=== PATIENT | female | born 1930 | race Caucasian/White ===

== ENCOUNTER 2016-12-12 18:29 | Inpatient (IN) | payer MEDICARE, OTHER ==
[~2016-12-12] VITALS: Ht 152.4 cm; Wt 80.7 kg
--- NOTE | ~2016-12-12 | CATH ---
Cardiac Diagnostic + PCI Report Demographics Patient Name STEPHANIE NGUYỄN Gender Female E Date of 1930 Age 86 year(s) Patient Number [id number] Date of Study 12/14/2016 Visit Number [id number] Room Number 414 Corporate ID Ht 152.4 cm Wt 78.93 kg Accession Number [id number] BSA 1.76 m kg/m Referring Dragan Singh Primary Physician Physician Otis Performing Fruehling Ramesh R Secondary Physician Physician Diagnostic Fruehling Ramesh R Assisting Physician Physician Interventional Fruehling Ramesh R Physician Hospital Account Manager Physician MD Findings and Conclusions Diagnostic Findings and Conclusion Two vessel coronary artery disease. Patent stent in the circumflex. 80% distal OM. Small diameter branch. 70% distal LAD. 80% apical-small. Ectatic, dominant RCA, with what appears to be a spontaneous non-flow limiting dissection in the mid portion. Diagnostic Recommendations FFR of the distal LAD lesion. Interventional Findings and Conclusion 70% distal LAD, FFR 0.9. Interventional Recommendations Medical management and low dose ASA. Resume coumadin for a-fib. Add low dose Imdur and continue antiplatelet. Procedure Description The patient was brought to the diagnostic cardiac catheterization laboratory in the fasting, non-sedated state. Informed consent was obtained in the written and verbal form after the risks and benefits were explained. The patient had no further questions and agreed to proceed. The planned puncture-incision site(s) were clipped and prepped with ChloraPrep and draped in the usual sterile manner. Conscious sedation, supplemental oxygen, and pain control medications were delivered by a registered nurse under physician guidance. Surface ECG rhythm, blood pressure measurement, and pulse oximetry were monitored throughout the procedure. Arterial access. The right radial access site was infiltrated with lidocaine. The right radial vessel was entered with the Seldinger technique. A 6F radial sheath was advanced into the vessel and used for catheter placement. Selective right coronary angiography. A 6F FR4 catheter was advanced into the right coronary vessel ostium under fluoroscopic guidance. Contrast was injected by hand. Images were obtained in multiple projections. Selective left coronary angiography. A 6F JL4 catheter was advanced into the left coronary vessel ostium under Fluoroscopic guidance. Contrast was injected by hand. Images were obtained in multiple projections. FFR measurement was performed. The vessel was entered with an EBU 3.5 guiding catheter. The FFR wire was normalized and then advanced across the lesion. Maximum hyperemia was achieved using adenosine. Left heart catheterization. A 6F angled pigtail catheter was advanced across the aortic valve to the left ventricle under fluoroscopic guidance. Resting hemodynamics were obtained. Arterial artery hemostasis was achieved using a TR band. The patient was transferred to a regular nursing floor via cart accompanied by a nurse. The patient left the laboratory in stable condition. Diagnostic Cath Status: Urgent Procedure Procedure Type Diagnostic procedure:Angiography:, Coronary Angios w/[facility] PCI procedure:Additional Imaging:, FFR/iFR:, Initial Vessel Indications: Chest discomfort, Elevated troponin, Prior PCI with stent placement, CAD, Diabetes, Hyperlipidemia and Hypertension. The procedure was explained in detail to the patient. Risks, complications and alternative treatments were reviewed. Written consent was obtained. Medications Reviewed with Patient prior to Procedure. Complications: No Complication. Angiographic Findings Dominance: Right Cardiac Arteries and Lesion Findings LMCA: Normal (0% Stenosis). LAD: Abnormal. Lesion on Dist LAD: Proximal subsection.70% stenosis . Devices used - VERRATA. Number of passes: 1. Lesion on Prox LAD: 40% stenosis . Lesion on Mid LAD: 30% stenosis . Lesion on 1st Diag: Mid subsection.40% stenosis . Lesion on Dist LAD: Distal subsection.80% stenosis . LCx: Abnormal.There is a previous stent on Mid CX showing wide patency. Lesion on Prox CX: Mid subsection.40% stenosis . Lesion on 1st Ob Sue: Distal subsection.80% stenosis . RCA: Abnormal. Lesion on Prox RCA: 30% stenosis . Lesion on Mid RCA: 40% stenosis . Comments:ectatic Lesion on Dist RCA: 30% stenosis . Coronary Tree Procedure Data Procedure Date Date: 12/14/2016Start: 08:05 AMEnd: 08:55 AM Entry Locations - Percutaneous access was performed through the Right Radial artery (Primary location). A 6 Fr sheath was inserted. Procedure Medications Order and Administration + + +---------+-------+ !Time !Medication !Dosage !Route ! + + +---------+-------+ !12/14/2016 !Fentanyl !25 mcg !I.V. ! !08:02 AM ! ! ! ! + + +---------+-------+ !12/14/2016 !Versed !1 mg !I.V. ! !08:02 AM ! ! ! ! + + +---------+-------+ !12/14/2016 !Sodium Chloride !10 ml !I.V. ! !08:02 AM ! ! ! ! + + +---------+-------+ !12/14/2016 !SF Radial Cocktail: 200mcg Nitro, 2.5 mg! !I.A. ! !08:11 AM !Verapamil, 5000u Heparin ! ! ! + + +---------+-------+ !12/14/2016 !Fentanyl !25 mcg !I.V. ! !08:11 AM ! ! ! ! + + +---------+-------+ !12/14/2016 !Versed !1 mg !I.V. ! !08:11 AM ! ! ! ! + + +---------+-------+ !12/14/2016 !Oxygen !2 l/min !NC ! !08:15 AM ! ! ! ! + + +---------+-------+ !12/14/2016 !Oxygen !4 l/min !NC ! !08:16 AM ! ! ! ! + + +---------+-------+ !12/14/2016 !Heparin (ACC_3) !1000 ! ! !08:39 AM ! !units ! ! + + +---------+-------+ !12/14/2016 !Adenosine (IV) !33 mg !I.V. ! !08:32 AM ! ! ! ! + + +---------+-------+ !12/14/2016 !Sodium Chloride !10 ml !I.V. ! !08:39 AM ! ! ! ! + + +---------+-------+ Devices Used - A6 FrCATH 6FR MULTIPACK CATHETERSwas used for:BilateralCoronary Angios. - A6 FrCATH 6FR MULTIPACK CATHETERSwas used for:BilateralCoronary Angios. - A6 FrGUIDE CATHETER 6FR EBU 3.5 100CMwas used for:LeftsideFractional Flow [place] measurments. - A6 FrCATH 6FR MULTIPACK CATHETERSwas used for:LeftsideLV Pressures. Contrast Material - Isovue 63574 ml Fluoroscopy Time: Diagnostic: 5:30 minutes. Total: 5:30 minutes. Fluoroscopy Dose: Diagnostic: 572 mGy. Total: 572 mGy. Estimated Blood Loss: 10 ml. Medical History Allergies - Penicillin. - Sulfa. - Other:(lisinopril, cipro, flagyl, meperidine, fish oil). Risk Factors The patient risk factors include:prior PCI on 11/27/2014;physical activity, treated hypercholesterolemia, treated hypertension, diet-treated diabetes mellitus, chronic lung disease, last creatinine: 1.1 mg/dl, creatinine clearance: 47.43 ml/min, dyslipidemia and prior IN . Admission Data Admission Date: 12/13/2016 Admission Time: 08:50 AM Insurance Payors: Medicare. Clinical Evaluation Leading to Procedure Diagnosed on 12/14/2016 07:50 AM. - The patient's CAD presentation was assessed as: Non-STEMI. Hemodynamics Condition: Rest O2 Consumption: Estimated: 164.26Heart Rate: 81 bpm Pressures (mmHg) +-----+ + !Site !Pressure ! +-----+ + !AO !87/49 (65) ! +-----+ + !LV !103/0 ,13 ! +-----+ + !AO !117/42 (73) ! +-----+ + !LV !102/1 ,14 ! +-----+ + Valve Gradients and Areas + +---------+---------+---------+ +---------+ + !Valve !Peak !Mean !Area !Index !Flow !Source ! + +---------+---------+---------+ +---------+ + !Aortic !0 !0 ! ! ! ! ! + +---------+---------+---------+ +---------+ + !Aortic !0 !0 ! ! ! ! ! + +---------+---------+---------+ +---------+ + Shunts Oxygen Values O2 Capacity 157.76 O2 Consumption 164.26 Discharge Data Discharge Date: 12/16/2016 Hospital Status: Inpatient Signatures
--- NOTE | ~2016-12-12 | ECH ---
Transthoracic Echocardiography Report (TTE) Demographics Patient Name GOPI BROWN Date of Study 12/13/2016 E Patient Number [id number] Visit Number [id number] Date of 1930 Room Number 414 Accession Number [id number] Gender Female Age 86 year(s) Referring Cecilia Mcmahan Processing Technologist Isha Espino [facility] Physician MD Dragan Berg Physician Interpreting Cecilia Mcmahan Chocolate Finisher Physician Supervising Ordering Physician Cecilia Mcmahan MD/MLP Nurse Stress Sports Physician Conclusions Summary Technically adequate exam. The estimated left ventricular ejection fraction is 60%. Mild left ventricular hypertrophy. The left atrium is severely dilated by LA volume index measurement. Moderate mitral annular calcification. Mild mitral regurgitation by color Doppler. There is mild aortic regurgitation by color Doppler. Moderate tricuspid regurgitation by color Doppler. Estimated pulmonary pressures within normal limits. Procedure Type of Study TTE procedure:Echo Complete SF. Procedure Date Date: 12/13/2016 Start: 09:43 AM Technical Quality: Adequate visualization Indications:Chest pain, Abnormal troponin and Coronary artery disease. Additional Indications:pacemaker, history of atrial flutter Appropriate Use Criteria: 9 Height: 60 inches Weight: 174 pounds BSA: 1.76 m Rhythm: Irregular HR: 75 bpm BP: 126/77 mmHg M-Mode/2D Measurements LV Diastolic Dimension: 3.3 cm LV Systolic Dimension: 3.1 cm LV Septum Diastolic: 0.99 cm LV PW Diastolic: 1.21 cm AO Root Dimension: 2.64 cm Cardiac Output: 3.43 l/min LA Dimension: 3.94 cm Cardiac Index: 1.95 l/min*m RV Diastolic Dimension: 3.3 cm LA volume index: 49 ml/m LVOT: 1.66 cm LVOT VTI: 21.13 cm RV Base: 3.1 cm LV Stroke volume: 45.71 ml RV Mid: 1.9 cm LV Stroke volume index: 25.97 ml/m Doppler Measurements AV Peak Velocity: 1.08 m/s MV Peak E-Wave: 1.29 m/s AV Peak Gradient: 4.67 mmHg AV Mean Gradient: 3.12 mmHg MV P1/2t: 47.1 msec LVOT Peak Velocity: 0.96 m/s AV Area (Continuity):2.39 cm AV P1/2t: 438.3 msec MV Area (PHT): 4.67 cm TR Velocity:2.46 m/s PV Peak Velocity: 0.94 m/s TR Gradient:24.21 mmHg PV Peak Gradient: 3.56 mmHg Estimated RAP:5 mmHg Estimated PASP: 29.21 mmHg Estimated RVSP: 29 mmHg RA Area: 13.8 cm Findings Left Ventricle The left ventricle is normal in size . Mild left ventricular hypertrophy. Diastolic function indeterminate due to patient's arrhythmia. Right Ventricle Normal right ventricle structure and function. Left Atrium The left atrium is severely dilated by LA volume index measurement. Right Atrium Normal right atrial size. Mitral Valve Mild to moderate mitral annular calcification. Mild mitral regurgitation by color Doppler. Aortic Valve The aortic valve is mildly sclerotic. There is mild aortic regurgitation by color Doppler. Tricuspid Valve Normal tricuspid valve structure and function. Mild tricuspid regurgitation by color Doppler. Estimated pulmonary pressures within normal limits. Pulmonic Valve The pulmonic valve is not well visualized. Pericardial Effusion No evidence of pericardial effusion. Miscellaneous Visualized portions of the aortic root and ascending aorta appear normal in size. Pleural Effusion No evidence of pleural effusion. Contractility Score LV regional wall motion:(0-Non visualized 1-Normal 2-Hypokinesis 3-Akinesis 4-Dyskinesis 5-Aneurysm) Signature
--- NOTE | ~2016-12-12 | LETTER ---
ADMIT: 12/12/2016 RM/LOC: 414 [facility] MR#: [id number] [address] [address] ITALORUCHI ARTI Payton [address] [facility] [place] [address] Letter SEX: F AGE: 86 : 1930 December 14, 2016 Samantha Archibald MD. [address] [place] [address] Re: ARTI NORRIS Dear Samantha, Your patient, Arti Norris was hospitalized over the weekend. She had chest discomfort. As you recall, she has coronary disease with a previous circumflex stents two years ago and FFR of the LAD at that time, which was 0.84. Her LAD was not treated. On this occasion, her peak troponin was 3.7. I did a heart catheterization this morning. Her circumflex stent is widely patent. The LAD looks stable. The changes that I noticed are that a small obtuse marginal has a high-grade 80% stenosis and the very apical LAD has 80% stenosis. These are very small and distal vessels. I did go ahead and repeat the FFR of the LAD, which was 0.9 indicating it was not hemodynamically significant in the distal lesion, which was my biggest concern. We will treat her medically. We will add aspirin to her long-term Coumadin therapy that she is on for atrial fibrillation. I am going to add low-dose Imdur 30 daily and increase her Lipitor to 20 daily. If you any questions or concerns, please do not hesitate to contact me. Sincerely, MD PADMINI Salazar/guerline /[phone]
[~2016-12-12 18:29] MED LIST: AMBIEN DPS10 MG PO; CARDIZEM90 MG PO; CENTRUM SILVER1 EAC1 PO; COLACE-DPS100 MG PO; COUMADIN DPS3 MG PO; FOLIC ACID1 MG PO; IMDUR DPS30 MG PO; LASIX DPS40 MG PO; MAALOX DPS30 ML PO; OXY IR DPS5 MG PO; PLAVIX75 MG PO; PROTONIX40 MG PO; SENOKOT S1 TAB PO; STOOL SOFTENER100 MG PO; TYLENOL DPS325 MG PO; VITAMIN D-32000 UNI1 PO
--- NOTE | 2016-12-13 13:34 | HP ---
ADMIT: 12/12/2016 RM/LOC: 414 [facility] MR#: [id number] [address] [address] GOPI BROWN [address] [facility] [place] [address] History and Physical SEX: F AGE: 86 : 1930 DATE OF SERVICE: CHIEF COMPLAINT: Chest pain. HISTORY OF PRESENT ILLNESS: This is an 86-year-old female. She has past medical history of coronary artery disease and osteoporosis with compression fractures. She presented with chest pain. It started this afternoon about 4:30, was persistent and fairly severe until she got here well after 6. She was on the phone with her daughter and it got progressively worse, so then she decided to call her daughter back and called her son. They came over. She took 2 different nitroglycerin pills. Pain really did not resolve at all, but then she decided to come to the emergency room. By the time she got here, her pain had resolved. Initial workup was all normal. She has no more pain now. Interestingly enough since last August, she has had decreased exercise tolerance. It started after she had a fall with subsequent compression fractures on August 23. She has had some back pain ever since that time. She noted that she went up some stairs a few weeks ago and she was quite short of breath, and then she had walked out to her mailbox recently and this also made her short of breath which is unusual for her. She did not know if this was related to her just deconditioning from her back injury or that there was a heart problem setting in. She usually sees Dr. Hardin and she has an appointment set up for the of next month. PAST MEDICAL HISTORY: Includes gastritis, chronic back pain, coronary artery disease, status post stent placement. She has had a pelvic fracture, thoracic compression fractures, COPD, diabetes. She had diverticulosis. She has degenerative joint disease of the cervical spine, history of esophageal spasm. She had a hiatal hernia. She has atrial fibrillation/atrial flutter, on chronic anticoagulation. She has hypertension, hyperlipidemia, obstructive sleep apnea. She has pacemaker, arthritis of multiple joints, chronic kidney disease stage III, vitamin D deficiency. PAST SURGICAL HISTORY: Include bilateral cataracts. She has had a lap cholecystectomy. HOME MEDICATIONS: 1. Aldactone 25 mg daily. 2. Coumadin 3 mg five days a week, 1.5 mg two days a week. 3. Folic acid 1 mg b.i.d. 4. Potassium 20 mEq daily. 5. Protonix 40 mg daily. 6. Tylenol 325 mg tablets two tabs four times a day. 7. Vitamin D3 2000 units daily. 8. Centrum Silver daily. 9. Nitroglycerin p.r.n. 10.She has Lipitor 10 mg daily. 11.She has stool softeners. 12.Lasix 20 mg daily. ADMIT: 12/12/2016 RM/LOC: 414 [facility] MR#: [id number] [address] [place] [id number] GOPI BROWN [address] [place] [address] History and Physical SEX: F AGE: 86 : 1930 ALLERGY: To penicillin, sulfa, Zocor, Cipro, Demerol, fish oil, Flagyl, Livalo, Lopressor, and pravastatin. IMMUNIZATIONS: She had a flu shot this last fall. She had a Prevnar in 2014 and Pneumovax in 2006. She had a Zostavax in 2011. FAMILY HISTORY: Diabetes in some aunts, coronary artery disease in an uncle. Grandmother with breast cancer, paternal and maternal, and a paternal aunt with breast cancer. Cousins with breast cancer. Sister with stroke and a sister with abdominal aortic aneurysm. Brother with hypertension. Father with colon cancer. SOCIAL HISTORY: She never has smoked. About one can of beer per week. REVIEW OF SYSTEMS: Other complete review of systems obtained and negative except as above. PHYSICAL EXAMINATION: VITAL SIGNS: Temperature 97.1, pulse 87, respirations 14, blood pressure 140/90. GENERAL: This is a well-appearing, very nice 86-year-old female. She appears her stated age. She is in no apparent distress. She is alert. She is oriented. She is wearing glasses. HEENT: Head is normocephalic, atraumatic. Pupils are equal, round, and reactive to light and accommodation. Extraocular muscles are intact. Her throat is clear. NECK: Supple. Trachea midline. HEART: Irregularly irregular. Pacer in left upper chest. LUNGS: Diminished, but clear to auscultation bilaterally. ABDOMEN: Soft, without any tenderness. EXTREMITIES: Lower extremities have trace edema bilaterally. Some varicosities. She can move all extremities equally bilaterally. Cranial nerves are intact. LABORATORY AND X-RAY DATA: EKG, has ventricular paced rhythm. Cardiac enzymes are negative. ASSESSMENT AND PLAN: 1. Chest pain. 2. Coronary artery disease. 3. Decreased exercise tolerance. 4. Atrial fibrillation. ADMIT: 12/12/2016 RM/LOC: 414 [facility] MR#: [id number] [address] [place] [id number] GOPI BROWN [address] [place] [address] History and Physical SEX: F AGE: 86 : 1930 5. Anticoagulation. Her INR was 1.0. 6. She has osteoporosis. 7. Obstructive sleep apnea. 8. History of pacemaker. 9. Chronic obstructive pulmonary disease. PLAN: We are going to have her admitted to the hospital, rule out for acute ischemia with serial cardiac enzymes. Start her on some aspirin and do a pacer check on her as well. We will have Cardiology see her. I think she needs an echo because of her decreased exercise tolerance and good story from this degree of chest pain, and I will give her a dose of Lovenox because of her low INR. Hernán Henry MD/ guerline JOB #: [id number] CC: Samantha Archibald, Attending Physician Samantha Archibald, Family Physician
[2016-12-17] MEDS ORDERED: ASPIR 8181 MG PO (11:21)
[2016-12-17] MEDS ORDERED: CRANBERRY500 M1 PO (11:22)
[2016-12-17] MEDS ORDERED: TOPROL XL DPS25 MG PO (11:22)
[2016-12-17] MEDS ORDERED: LOVENOX DP30 MG/0.3 SQ (11:23)
--- NOTE | 2016-12-22 13:53 | ER ---
ADMIT: 12/12/2016 RM/LOC: ER [facility] MR#: [id number] [address] [address] GOPI BROWN [facility] [facility] [address] Emergency Room Report SEX: F AGE: 86 : 1930 DATE: 12/12/2016 See T sheet for complete H and P. ADDENDUM: An 86-year-old female comes in complaining of chest pain. It began about 3 hours ago and was spread over to chest with radiation to both arms. She did take some nitroglycerin at home, which did not seem to initially change her pain but did get better by the time she came in here. She had some slight pain when she got here, but by the time I spoke with her, pain had resolved completely. She does have history of coronary artery disease with stents a couple of years ago and she had some other nonocclusive disease at that time. Cardiac enzymes were normal here. Her D-dimer was slightly elevated but her INR was 1.8. She takes Coumadin for her atrial fibrillation. Chest x-ray showed nothing acute and EKG showed nothing acute. I spoke to Dr. Henry, and will be admitting the patient for further chest pain workup. The patient is admitted in improved condition. DIAGNOSES: Chest pain. Richard Waite MD/ guerline JOB #: [id number] CC: Walter Corral MD, Attending Physician
--- NOTE | 2016-12-25 17:29 | CO ---
ADMIT: 12/12/2016 RM/LOC: 414 [facility] MR#: [id number] [id number] [place], [place] [address] ARTI BROWN [facility] [place] [address] Consultation SEX: F AGE: 86 : 1930 DATE OF CONSULTATION: 12/13/2016 ATTENDING PHYSICIAN: Samantha Archibald CONSULTING PHYSICIAN: Ramesh Brooks MD REASON FOR CONSULT: Chest pain with known history of coronary disease and elevated cardiac biomarkers. HISTORY OF PRESENT ILLNESS: Arti is a very nice 86-year-old lady with a significant cardiac history. She actually had a drug-eluting stent to her circumflex about 2 years ago in November of 2014. She had residual LAD disease that was negative by fractional flow reserve and has been treated medically. She also has a history of AFib on sotalol and anticoagulation. She has tachy- ino syndrome, status post previous pacemaker implantation. She said ever since August when she sustained a fall and had a compression fracture followed by influenza and coughing for about 6 weeks, she has continued to have some shortness of breath with exertion. These are somewhat similar, although not as intense as her symptoms she had before her previous stent in 2014. She was just waiting to discuss with Dr. Hardin in the office her ongoing symptoms. She did not think they were that serious. Yesterday, she had come home from the grocery store and was just getting ready for evening when she began having an uncomfortable feeling in her chest. She described it as a tightness, which was rather severe between her breasts. Her arms became very weak, but there was no radiation of the pain. She said she did not have a lot of shortness of breath or nausea or vomiting with it. She was not diaphoretic. She called her children. She said she "hemmed in hard" about coming in. Finally, she threw up her arms and said let us go to the emergency room. Her initial enzymes were negative. Overnight, however, her cardiac enzymes have become positive with a troponin of over 2. Currently, she is pain free. She appears comfortable and she is resting comfortably. Her INR is subtherapeutic. She does have a few paced beats, but I do not see any acute ischemic EKG changes on her EKG. ALLERGIES: OPIOIDS, PENICILLIN, SULFA, LISINOPRIL, METRONIDAZOLE, MEPERIDINE, FISH OIL, AND AN INTOLERANCE TO CIPRO. HOME MEDICATIONS: Include: 1. Aldactone 25 mg daily. 2. Coumadin 3 mg, but not on Wednesday or Wednesday. 3. Betapace 120 b.i.d. 4. Coumadin 1.5 mg on Wednesday, Wednesday. 5. Folic acid 1 mg b.i.d. 6. Potassium 20 mEq daily. 7. Protonix 40 mg daily. 8. Tylenol 325 mg q.i.d. 9. Vitamin D3, Centrum Silver, nitroglycerin as needed. 10.I think she is also on Lipitor, but I do not know the dose. ADMIT: 12/12/2016 RM/LOC: 414 [facility] MR#: [id number] [address] [place] [id number] ARTI BROWN [address] [place] [address] Consultation SEX: F AGE: 86 : 1930 ILLNESSES: Include questionable history of COPD. She has osteoporosis; atrial fibrillation, which I think is persistent, but she has been maintaining sinus rhythm; chronic kidney disease; coronary artery disease with previous stent to the circumflex in 2014; osteoporosis; hypertension; hyperlipidemia; obstructive sleep apnea. PAST SURGICAL HISTORY: Includes knee replacement in 2012. She has had a cholecystectomy and cataract surgery. FAMILY HISTORY: Negative for premature coronary disease. Her father had stomach cancer and also suffered a stroke. She has another younger sister, who is wheelchair bound after a stroke. Her mother at the age 103 of old age. SOCIAL HISTORY: She does not have a significant smoking history. She drinks 2 cups of coffee a day. She tries to follow a low-sodium diet. No alcohol or illicit drug use. She has been for the past 10 years. She has 3 children. 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 REVIEW OF SYSTEMS: GENERAL: She tires easily and that has been going on for 4 months. EYES: Positive for blurry vision and cataracts. ENT: Denies hearing loss or problems with nose, mouth or throat. PULMONARY: She wakes more than once a night. GASTROINTESTINAL: Positive for heartburn, reflux, and history of cholecystectomy. GENITOURINARY: Positive for urinary tract infections. MUSCULOSKELETAL: Positive for muscle pain. ENDOCRINE: Denies history of thyroid dysfunction or diabetes. HEMATOLOGIC: Denies history of anemia, easy bruising, or cancer. NEUROLOGIC: Denies chronic headaches, dizziness, syncope, stroke, seizures or numbness or tingling. PSYCHIATRIC: Denies history of mental illness or feelings of depression. PHYSICAL EXAMINATION: VITAL SIGNS: Her blood pressure is 126/77, her pulse is 79, respirations 14, she is afebrile, O2 sats are 95% on room air. SKIN: Mildly pale. [place], warm and dry. EYES: There was some haziness over her lens. Sclerae clear. No xanthelasmas. ENT: No definitive carotid bruits and no JVD. Oral mucosa is pink and moist. No jugular venous distention or carotid bruits. CHEST: Moderate kyphosis. Respirations are even and unlabored. Lungs are clear to auscultation. HEART: Regular rate and rhythm. Normal S1, S2. No murmurs, rubs or gallops. ABDOMEN: Mildly obese. Soft and nontender. MUSCULOSKELETAL: Positive for kyphosis. Gait is normal. EXTREMITIES: Trivial edema with varicosities. PSYCHIATRIC: Alert and oriented. Mood and affect are appropriate. ADMIT: 12/12/2016 RM/LOC: 414 [facility] MR#: [id number] [address] [facility] [address] [place], [place] [address] ARTI BROWN [address] [place], [place] [id number] Consultation SEX: F AGE: 86 : 1930 LABORATORY AND IMAGING DATA: Sodium 139, potassium 4.0, BUN 18, creatinine is 1.4. Total bilirubin is normal. Her AST is 19, ALT is 18. CK initially was 44, now is 131, with an MB of 16, which gives a ratio of 12 and her troponin is 2.83. Her initial troponin was normal. ProBNP is mildly elevated at 1574. Her INR is 1.06. White count 9.8, hemoglobin 13.7, and platelet count 260,000. Chest x-ray is pending. IMPRESSION: 1. Eqo-ES-nsdfanodu-acute coronary syndrome. 2. Known coronary artery disease. 3. History of atrial fibrillation, on anticoagulation and antiarrhythmic therapy. 4. Prior permanent pacemaker implantation. 5. Chronic kidney disease. 6. Gastroesophageal reflux disease. 7. Osteoporosis. 8. History of sleep apnea. RECOMMENDATIONS: She is stable now without any further chest pain and resting comfortably. Her enzymes have turned positive and there are high risk features. She now has a kwh-TD-ydlesmodu myocardial infarction. I would like to continue to hold her Coumadin. We will do an echo today to evaluate her LV function, and I am planning tentatively on heart catheterization in the morning. Unless there is a significant clinical change, I could take her on a more urgent basis. I would like her echo prior to her heart catheterization. We will continue her heparin. Her INR is subtherapeutic, so we will continue to hold her Coumadin. I did discuss the procedure with her including the potential risk and benefits. Potential risks including, but not limited to, bleeding or vascular trauma, worsening of her myocardial infarction, renal failure, arrhythmia, kidney failure, and even a small possibility of . She states understanding and wishes to proceed. I also would like to continue some hydration over the next day before her heart cath. Ramesh Brooks MD/ guerline JOB #: [id number] CC: Samantha Archibald, Attending Physician Samantha Archibald, Family Physician
--- NOTE | 2016-12-28 01:17 | DS ---
ADMIT: 12/13/2016 RM/LOC: 414 [facility] MR#: [id number] [address] [place], [place] [address] ARTI BROWN [facility] [place] [address] Discharge Summary SEX: F AGE: 86 : 1930 ADMISSION DATE: 12/13/2016 DISCHARGE DATE: 12/16/2016 DIAGNOSES: 1. 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 2. Acute coronary syndrome. 3. Coronary artery disease. 4. Atrial fibrillation-chronic and persistent. 5. Pacemaker. 6. Hypokalemia. 7. Osteoporosis. 8. COPD (chronic obstructive pulmonary disease). 9. Hyperlipidemia. 10.Dysuria. PROCEDURE: 1. Pacemaker check. 2. Echo 12/13/2016. 3. Heart catheterization 12/14/2016. REASON FOR HOSPITALIZATION: Chest pain. See dictated H and P. LABORATORY AND X-RAY DATA: Echocardiogram with an ejection fraction of 60%. Left atrial dilatation, moderate mitral annular calcification, moderate tricuspid regurgitation with normal pulmonary pressures. Sodium 142, potassium 4.3, chloride 111, CO2 25, BUN 12, creatinine 1.4 down to 1, cholesterol 107, triglycerides 61, HDL 40, LDL 55. Calcium 8.5, total bilirubin 0.5, total protein 7.2, albumin 3.4, alkaline phosphatase 101, AST 19, ALT 18, GFR 52, CK 144 on admit up to 166, MB on admit 1.3 (did bump to 20.2), final value of 13.3, relative index final value 9.9, troponin 0.015 on admission, maxed to 3.710, down to 0.767. ProBNP 1574. INR on admission was 1.06, final value 1.21. PTT was variable, see chart. White count 8, hemoglobin 11.1, platelet count 223, lactic acid 1.2 on admission. Urine with some nitrites and culture is pending. Chest x-ray with cardiomegaly which was unchanged. Cardiac cath showed patent stent in the circumflex. 80% distal obtuse marginal which was a small vessel. 70% distal LAD with FFR 0.9 as well as 80% apical small. There was an ectatic dominant RCA, which there was noted to have a mid portion with what appears to be a spontaneous dissection, which was felt to be the culprit of her hospital course. COURSE IN HOSPITAL: Arti was admitted with chest pain for serial enzymes and rule out. Her pain at the time had actually resolved. By the following day, her enzymes had slightly bumped. With her history and apparent non-STEMI and acute coronary syndrome, she was taken to laborer cutting tool. Echo thankfully was unremarkable. Cardiac cath showed her stents were patent, but there was evidence of either a very large plaque versus spontaneous dissection of the RCA. She was heparinized postprocedure. After review with multiple other cardiology providers, it was felt that this did represent a dissection. For ADMIT: 12/13/2016 RM/LOC: 414 [facility] MR#: [id number] [address] [place] [id number] [place] [address] Discharge Summary SEX: F AGE: 86 : 1930 this reason, she will be anticoagulated overnight with increased activity. She did very well other than some mild shortness of breath at the beginning. After that, she had improved. Discussion was for triple anticoagulant therapy with aspirin, her Coumadin for atrial fibrillation, as well as Plavix. The Plavix will be continued for at least 2 months at which time it will likely be discontinued and she will continue on indefinite aspirin and her Coumadin. DISCHARGE MEDICATIONS: Lovenox and also start cardiac rehab in the following week. Other medication adjustments include adding Imdur and increasing her Lipitor. DISCHARGE INSTRUCTIONS: Discharge instructions include medications of: 1. Aldactone 25 mg daily. 2. Aspirin 81 mg daily. 3. Betapace 120 b.i.d. 4. Coumadin 3 mg daily with a discharge INR of 1.21. 5. Folic acid 1 mg b.i.d. 6. Imdur 30 mg daily. 7. Potassium 20 mEq daily. 8. Lipitor 20 mg at bedtime. 9. Plavix 75 mg daily which will likely continue for 2 months. 10.Protonix 40 mg daily. 11.Vitamin daily. 12.Toprol-XL 25 mg 1/2 pill daily. 13.Tylenol 650 q.i.d. 14.Vitamin D3 2000 international units daily. 15.Nitroglycerin p.r.n. 16.Cranberry pills which she has been taking at 500 mg, we believe, daily. She will continue this. 17.She will start with Lovenox 1.5 mg/kg subcu on the day of discharge and then daily through Wednesday12/18/2016 (120 mg dose). On that date, she will receive her Lovenox and stop by for a protime at the office. Determination at that time for continued Lovenox will be made. She will have an appointment with me in 10-14 days and do cardiac rehab beginning next week. Overall, her prognosis is good. Time spent 40 minutes. Samantha Archibald MD/ tico JOB #: [id number] CC: Samantha Archibald MD, Attending Physician Smaantha Archibald MD, Family Physician . [facility]
[2017-06-19] MEDS ORDERED: COUMADIN2.5 MG PO (20:12)
[2017-06-19] MEDS ORDERED: PLAVIX75 MG PO (20:12)
[2017-06-19] MEDS ORDERED: LASIX DPS20 MG PO (20:12)
[2017-06-19] MEDS ORDERED: LIPITOR DPS20 MG PO (20:13)
[2017-06-19] MEDS ORDERED: IMDUR DPS30 MG PO (20:13)
[2017-06-19] MEDS ORDERED: NITROSTAT0.4 MG SL (20:14)
[2017-06-19] MEDS ORDERED: VITAMIN D1000 UNI1 PO (20:14)
[2017-06-19] MEDS ORDERED: PROVENTIL HFA6.7 GM IH (20:14)
[2017-06-19] MEDS ORDERED: KLOR-CON M2020 ME1 PO (20:15)
[2017-06-19] MEDS ORDERED: ALDACTONE DPS25 MG PO (20:15)
[2017-06-19] MEDS ORDERED: PEPCID DPS20 MG PO (20:15)
[2017-06-19] MEDS ORDERED: BETAPACE DPS120 MG PO (20:16)
[2017-06-19] MEDS ORDERED: AMBIEN DPS10 MG PO (20:16)
== END 2016-12-16 14:07 | disposition home or self-care (01) | DRG 280 ==
LOC: ER 18:29 → 4PCU 20:40
PROVIDERS: ADMIT Internal Medicine
PROC: B2111ZZ Fluoroscopy of Multiple Coronary Arteries using Low Osmolar Contrast (ICD-10-PCS; principal; 2016-12-14)
PROC: 4A023N7 Measurement of Cardiac Sampling and Pressure, Left Heart, Percutaneous Approach (ICD-10-PCS; principal; 2016-12-14)
PROC: 4A033BC Measurement of Arterial Pressure, Coronary, Percutaneous Approach (ICD-10-PCS; principal; 2016-12-14)
DX: I21.4 Non-ST elevation (NSTEMI) myocardial infarction (principal); I25.42 Coronary artery dissection; I48.1 Persistent atrial fibrillation; E11.22 Type 2 diabetes mellitus with diabetic chronic kidney disease; J44.9 Chronic obstructive pulmonary disease, unspecified; I48.92 Unspecified atrial flutter; K59.00 Constipation, unspecified; I25.10 Atherosclerotic heart disease of native coronary artery without angina pectoris; M81.0 Age-related osteoporosis without current pathological fracture; M54.9 Dorsalgia, unspecified; G89.29 Other chronic pain; K57.90 Diverticulosis of intestine, part unspecified, without perforation or abscess without bleeding; M47.9 Spondylosis, unspecified; K44.9 Diaphragmatic hernia without obstruction or gangrene; E78.5 Hyperlipidemia, unspecified; G47.33 Obstructive sleep apnea (adult) (pediatric); M19.90 Unspecified osteoarthritis, unspecified site; N18.3 Chronic kidney disease, stage 3 (moderate); I12.9 Hypertensive chronic kidney disease with stage 1 through stage 4 chronic kidney disease, or unspecified chronic kidney disease; E55.9 Vitamin D deficiency, unspecified; Z79.01 Long term (current) use of anticoagulants; Z95.5 Presence of coronary angioplasty implant and graft; Z95.0 Presence of cardiac pacemaker; Z82.49 Family history of ischemic heart disease and other diseases of the circulatory system; Z96.659 Presence of unspecified artificial knee joint

== ENCOUNTER 2017-01-13 08:10 | Day surgery (SDC) | payer MEDICARE, OTHER ==
[~2017-01-13] VITALS: Ht 152.4 cm; Wt 78.7 kg
[~2017-01-13 08:10] MED LIST changes: +ASPIR 8181 MG PO; +CRANBERRY500 M1 PO; +LOVENOX DP30 MG/0.3 SQ; +TOPROL XL DPS25 MG PO
--- NOTE | 2017-01-16 06:41 | OR ---
ADMIT: 01/13/2017 RM/LOC: SSS [facility] MR#: [id number] [address] [address] GOPI BROWN [address] [place] [address] Operative/Delivery Room Report SEX: F AGE: 86 : 1930 SURGERY DATE: 01/13/2017 SURGEON: Aime Garnett MD PREOPERATIVE DIAGNOSIS: Gastrointestinal bleed. POSTOPERATIVE DIAGNOSIS: Small sliding type hiatal hernia. OPERATION PERFORMED: Esophagogastroduodenoscopy with biopsies. DESCRIPTION OF THE PROCEDURE: The patient was brought to the procedure room and placed in left lateral decubitus position. Informed consent had been obtained preoperatively. The risks and benefits including, but not limited to, perforation, sedation, and bleeding were discussed with the patient and agreed upon. All questions were answered, alternatives discussed, the patient agreed. TIVA was provided by the [employer] with propofol. The Olympus videoendoscope, model GIF-XQ180, was passed the level of cricopharyngeus using finger guidance. Then, using direct visualization, scope was passed the length of the esophagus where no abnormalities of esophageal mucosa or esophageal varices were identified. There was a small sliding type hiatal hernia. The stomach was entered, air was insufflated, and fundic pool was suctioned. There was no blood present in the stomach. No mucosal abnormalities were identified. Biopsies were taken of the antrum to rule out occult Helicobacter infection. The pyloric sphincter was round, small, opened, and closed appropriately. Duodenal bulb was entered, inspected through the second part. No abnormalities were identified. The scope was withdrawn into the stomach and retroflexed to cardia, where once again the small hiatal hernia was identified. The scope was removed. The patient tolerated the procedure well. No complications were expected. Blood loss was less than 1 mL. She will call me in one week for her biopsy report, sooner if she should have any postoperative problems. Aime Garnett MD/ guerline JOB #: [id number] CC: Aime Garnett MD, Attending Physician Samantha Archibald MD, Family Physician
[2017-06-19] MEDS ORDERED: COUMADIN2.5 MG PO (20:12)
[2017-06-19] MEDS ORDERED: LASIX DPS20 MG PO (20:12)
[2017-06-19] MEDS ORDERED: PLAVIX75 MG PO (20:12)
[2017-06-19] MEDS ORDERED: LIPITOR DPS20 MG PO (20:13)
[2017-06-19] MEDS ORDERED: IMDUR DPS30 MG PO (20:13)
[2017-06-19] MEDS ORDERED: NITROSTAT0.4 MG SL (20:14)
[2017-06-19] MEDS ORDERED: PROVENTIL HFA6.7 GM IH (20:14)
[2017-06-19] MEDS ORDERED: VITAMIN D1000 UNI1 PO (20:14)
[2017-06-19] MEDS ORDERED: ALDACTONE DPS25 MG PO (20:15)
[2017-06-19] MEDS ORDERED: KLOR-CON M2020 ME1 PO (20:15)
[2017-06-19] MEDS ORDERED: PEPCID DPS20 MG PO (20:15)
[2017-06-19] MEDS ORDERED: AMBIEN DPS10 MG PO (20:16)
[2017-06-19] MEDS ORDERED: BETAPACE DPS120 MG PO (20:16)
== END 2017-01-13 12:35 | disposition home or self-care (01) ==
LOC: SSS 08:10
PROC: 0DB68ZX Excision of Stomach, Via Natural or Artificial Opening Endoscopic, Diagnostic (ICD-10-PCS; principal; 2017-01-13)
DX: K44.9 Diaphragmatic hernia without obstruction or gangrene (principal); K29.50 Unspecified chronic gastritis without bleeding; I25.2 Old myocardial infarction; K21.9 Gastro-esophageal reflux disease without esophagitis; M19.90 Unspecified osteoarthritis, unspecified site; Z90.49 Acquired absence of other specified parts of digestive tract; Z88.0 Allergy status to penicillin; Z88.2 Allergy status to sulfonamides; Z88.8 Allergy status to other drugs, medicaments and biological substances; Z98.890 Other specified postprocedural states

== ENCOUNTER 2017-03-09 19:47 | Emergency (ER) | payer MEDICARE, OTHER ==
--- NOTE | 2017-03-13 13:04 | ER ---
ADMIT: 03/09/2017 RM/LOC: ER [facility] MR#: [id number] [address] [address] GOPI BROWN [address] [place] [address] Emergency Room Report SEX: F AGE: 86 : 1930 DATE: 03/09/2017 CHIEF COMPLAINT: Back pain. HISTORY OF PRESENT ILLNESS: An 86-year-old white female, who presents with 3 days' duration of worsening low back pain. States she has a history of a fall last fall. She is status post kyphoplasty x2. Denies any recent injury. She was working outside with a hose, possibly had twisting and turning mechanism. States she has sharp aching pain in the left buttock radiating down past her knee. She states this is similar to pain that she has had in the back in the past. Denies any fever, chills, constipation, incontinence, nausea, vomiting, problems urinating, numbness. She does feel weak and has difficulty walking. Worse with movement. She has been using Tylenol akrk-trm-nqtioth as needed for pain at this point. COURSE IN THE EMERGENCY ROOM: GENERAL: The patient was seen and examined. She is afebrile and nontoxic. No acute distress. BACK: She does have some tenderness in the left buttock with some muscle spasm. No vertebral point tenderness. No CVA tenderness. She does have some difficulty walking secondary to pain. SKIN: Warm and dry. EXTREMITIES: Nontender. I did give her morphine as well as Valium and Zofran in the department tonight. She states her pain is improving. IMPRESSION: Sciatica, left, with low back pain. DISPOSITION: The patient was discharged on Ultram 50 mg tabs one tab p.o. every 6 hours as needed for pain #30. She is to continue to stay active, continue home medications. Return with worsening signs or symptoms. Tylenol or Motrin as needed for pain. Follow up with Dr. Archibald next week. Continue to stay active. Ice and heat to comfort. Questions sought and answered to the best of my ability and to the patient's satisfaction. Discharged in stable condition. NOAM Flood / Walter Corral MD / guerline JOB #: [id number] CC: Walter Corral MD, Attending Physician Samantha Archibald MD, Family Physician
[2017-06-19] MEDS ORDERED: COUMADIN2.5 MG PO (20:12)
[2017-06-19] MEDS ORDERED: PLAVIX75 MG PO (20:12)
[2017-06-19] MEDS ORDERED: LASIX DPS20 MG PO (20:12)
[2017-06-19] MEDS ORDERED: LIPITOR DPS20 MG PO (20:13)
[2017-06-19] MEDS ORDERED: IMDUR DPS30 MG PO (20:13)
[2017-06-19] MEDS ORDERED: VITAMIN D1000 UNI1 PO (20:14)
[2017-06-19] MEDS ORDERED: PROVENTIL HFA6.7 GM IH (20:14)
[2017-06-19] MEDS ORDERED: NITROSTAT0.4 MG SL (20:14)
[2017-06-19] MEDS ORDERED: KLOR-CON M2020 ME1 PO (20:15)
[2017-06-19] MEDS ORDERED: PEPCID DPS20 MG PO (20:15)
[2017-06-19] MEDS ORDERED: ALDACTONE DPS25 MG PO (20:15)
[2017-06-19] MEDS ORDERED: BETAPACE DPS120 MG PO (20:16)
[2017-06-19] MEDS ORDERED: AMBIEN DPS10 MG PO (20:16)
== END 2017-03-09 22:38 | disposition home or self-care (01) ==
LOC: ER 19:47
DX: M54.42 Lumbago with sciatica, left side (principal); I25.2 Old myocardial infarction; I10 Essential (primary) hypertension; E78.5 Hyperlipidemia, unspecified; Z95.5 Presence of coronary angioplasty implant and graft; Z95.0 Presence of cardiac pacemaker; Z90.89 Acquired absence of other organs; Z98.890 Other specified postprocedural states; Z88.0 Allergy status to penicillin; Z88.2 Allergy status to sulfonamides; Z88.1 Allergy status to other antibiotic agents; Z88.8 Allergy status to other drugs, medicaments and biological substances; Z79.82 Long term (current) use of aspirin; Z79.01 Long term (current) use of anticoagulants; Z79.899 Other long term (current) drug therapy